=== PATIENT | male | born 1950 | race Caucasian/White ===

== ENCOUNTER 2024-06-15 15:35 | Observation (INO) | payer MEDICARE, BC ==
[~2024-06-15] VITALS: Ht 180.3 cm; Wt 126.5 kg
[2024-06-15 16:11] LABS: BASOPHILS ABSOLUTE AUTO 0.04 K/mm3 (0.00-0.23); BASOPHILS PERCENT AUTO 1 % (0-2); EOSINOPHILS ABSOLUTE AUTO 0.05 K/mm3 (0.00-0.68); EOSINOPHILS PERCENT AUTO 1 % (0-6); Hemoglobin 12.6 g/dL (13.5-17.5); IMMATURE GRAN ABSOLUTE AUTO 0.05 K/mm3 (0.00-0.10); IMMATURE GRAN PERCENT AUTO 1 % (0-1); LYMPHOCYTES ABSOLUTE AUTO 1.79 K/mm3 (0.84-5.20); LYMPHOCYTES PERCENT AUTO 22 % (21-46); MONOCYTES ABSOLUTE AUTO 0.73 K/mm3 (0.16-1.47); MONOCYTES PERCENT AUTO 9 % (4-13); Mean Corpuscular HGB 31.7 pg (26.0-34.0); Mean Corpuscular HGB Conc 33.2 g/dL (31.5-36.5); Mean Corpuscular Volume 96 fL (80-100); NEUTROPHILS ABSOLUTE AUTO 5.32 K/mm3 (1.96-9.15); NEUTROPHILS PERCENT AUTO 67 % (41-73); Platelet Count 292 K/mm3 (150-400); RDW Coefficient Variation 13.1 % (11.7-14.2); RDW Standard Deviation 45.6 fL (35.1-46.3); Red Blood Cell Count 3.97 M/mm3 (4.30-5.90); White Blood Cell Count 7.98 K/mm3 (4.00-11.30)
[2024-06-15] MEDS ORDERED: NS 1,000 ML IV SCH ×2 (16:25→18:15)
[2024-06-15 16:26] LABS: Albumin, Blood 3.3 g/dL (3.4-5.0); Albumin/Globulin Ratio 0.6 (0.8-1.8); Bilirubin, Total 1.1 mg/dL (0.1-1.0); Bun/Creatinine Ratio 15.4 (12.0-20.0); Calcium, Blood 8.9 mg/dL (8.5-10.1); Creatinine, Blood 2.47 mg/dL (0.60-1.20); Globulin, Blood 5.2 g/dL (2.2-4.0); Potassium, Blood 4.2 mmol/L (3.5-5.5); Total Protein, Blood 8.5 g/dL (6.4-8.2)
[2024-06-15] MEDS ORDERED: Ondansetron 4 MG TAB PO PRN (18:15)
[2024-06-15] MEDS ORDERED: Acetaminophen 325 MG TABLET PO PRN (18:15)
[2024-06-15] MEDS ORDERED: Bisacodyl 10 MG Supp PR PRN (18:20)
[2024-06-15] MEDS ORDERED: Magnesium Hydroxide Conc 10 ML UDC PO PRN (18:20)
[2024-06-15] MEDS ORDERED: HYDROcodone 5-APAP 325 TAB PO PRN (18:20)
[2024-06-15] MEDS ORDERED: FLU VACC TS2024-25(6MOS UP)/PF 45 MCG/0.5 ML SYRINGE IM SCH (18:20)
[2024-06-15] MEDS ORDERED: Apixaban 5 MG Tab PO SCH (21:00)
[2024-06-15] MEDS ORDERED: Famotidine 20 MG Tab PO SCH (21:00)
[2024-06-15] MEDS ORDERED: Docusate Sodium 100 MG Cap PO SCH (21:00)
[2024-06-15] MEDS ORDERED: Sennosides 8.6 MG Tab PO SCH (21:00)
[2024-06-15] MEDS ORDERED: ELIQUIS5 M2 PO (21:18)
[2024-06-15] MEDS ORDERED: 1/2 NS 250ml250 ML (21:18)
[2024-06-16 05:17] LABS: Bun/Creatinine Ratio 20.9 (12.0-20.0); Calcium, Blood 8.5 mg/dL (8.5-10.1); Creatinine, Blood 1.82 mg/dL (0.60-1.20)
[2024-06-16] MEDS ORDERED: TORSE20 PO (08:02)
[2024-06-16] MEDS ORDERED: HYDROCHLOROTH12.5 MG PO (08:03)
[2024-06-16] MEDS ORDERED: ACET500 PO (08:04)
[2024-06-16] MEDS ORDERED: GABA300 PO (08:06)
[2024-06-16] MEDS ORDERED: Voltaren100 GM TOP (08:07)
[2024-06-16] MEDS ORDERED: LISI20 PO (08:08)
[2024-06-16] MEDS ORDERED: EZET10 PO (08:08)
[2024-06-16] MEDS ORDERED: OMEP20ER PO (08:09)
[2024-06-16] MEDS ORDERED: Crestor40 MG PO (08:09)
[2024-06-16] MEDS ORDERED: THERA-D2000 UNIT PO (08:10)
[2024-06-16] MEDS ORDERED: SOTO80 PO (08:10)
== END 2024-06-16 08:34 | disposition home or self-care (01) ==
LOC: ER 15:35 → ERHOLD 15:36
PROVIDERS: Student in an Organized Health Care Education/Training Program; ADMIT Hospitalist
DX: N17.0 Acute kidney failure with tubular necrosis (principal); R39.2 Extrarenal uremia; I48.91 Unspecified atrial fibrillation; I11.9 Hypertensive heart disease without heart failure; E78.5 Hyperlipidemia, unspecified; Z79.01 Long term (current) use of anticoagulants; Z79.899 Other long term (current) drug therapy; Z88.8 Allergy status to other drugs, medicaments and biological substances
CPT/HCPCS: 71275; 80048; 80053; 83735; 83880; 84484; 85025; 86850; 86900; 86901; 93005; 93010; 96360-59; 96361; 99285-25; A9270; G0378; J7030; Q9967